=== PATIENT | female | born 1975 | race Caucasian/White ===

== ENCOUNTER 2022-06-25 07:38 | Day surgery (SDC) | payer BC ==
[~2022-06-25] VITALS: Ht 170.2 cm; Wt 73.5 kg
[~2022-06-25 07:38] MED LIST: LORTAB 5/500 501 TAB PO; NO HOME MEDICATIONS; PRENATAL1 TA1 PO; ZYMAR OPHTH SOL5 ML OP
[2022-06-25] MEDS ORDERED: PRINIVIL20 MG PO (08:06)
[2022-06-25] MEDS ORDERED: TOPROL XL 50MG50 MG PO (08:07)
[2022-06-25] MEDS ORDERED: AMITRIPTYLINE H25 M1 PO (08:07)
[2022-06-25 10:45] VITALS: BP 106/71; PULSE 66; TEMP 96.4
--- NOTE | 2022-06-25 10:53 | NUR ---
1045 - PT arrives and was settled by [place]. Verbal report then obtained. Vitals obtained. PT provided w/ a warm muffin and ice water per request. PT oriented to room and call simon, within reach. PT denies pain and nausea; PT requested RN call .
[2022-06-25 11:00] VITALS: BP 134/88; PULSE 67
--- NOTE | 2022-06-25 11:04 | NUR ---
1100 - VSS. PT expressed desire to be discharged. PT has finished her muffin and continues to deny nas[place]a. No vomiting. has spoken w/ PT. was contacted per PT request about ETA. Call simon remains within reach.
[2022-06-25 11:15] VITALS: BP 126/79; PULSE 62
--- NOTE | 2022-06-25 11:20 | NUR ---
1115 - VSS. IV discontinued. Catheter tip intact. Pressure bandage applied. NO redness or swelling noted. DC instructions and educational material reveiwed with the PT who verbalized understanding and signed the related paperwork. PT refused RN assistance changing into personal clothes; call simon remains within reach if needed. 1120 - PT used call simon to let RN know she is ready to go downstairs. PT dismissed from [facility] via wheelchair to the PT entrence by Jemma SAHU. PT has DC packet and personal belongings, and was transferred into the care of her , who is driving private car.
[2022-06-25 13:55] VITALS: BP 113/87; PULSE 65; TEMP 98
== END 2022-06-25 11:20 | disposition home or self-care (01) ==
LOC: SDCO 07:38
DX: Z12.11 Encounter for screening for malignant neoplasm of colon (principal); D12.5 Benign neoplasm of sigmoid colon
CPT/HCPCS: J2704; J7030

== ENCOUNTER → 2024-08-29 | Outpatient (CLI) | payer BC ==
[2005-10-06 07:51] VITALS: BP 122/80; PULSE 66; TEMP 97.9
[~2024-08-29] MED LIST changes: +AMITRIPTYLINE H25 M1 PO; +PRINIVIL20 MG PO; +TOPROL XL 50MG50 MG PO
== END ==
LOC: MC.RAD 11:45
DX: Z12.31 Encounter for screening mammogram for malignant neoplasm of breast (principal)